=== PATIENT | female | born 1945 | race Caucasian/White ===

== ENCOUNTER 2019-01-15 09:20 | Inpatient (IN) | payer MEDICARE, OTHER ==
[2019-01-15] MEDS ORDERED: NS 0.9% 1000 ML** 1,000 ML IV ONE ×2 (09:31→11:47)
--- NOTE | 2019-01-15 09:31 | ED ---
Complex/Multi-Sys Presentation - HPI Summary HPI Summary: This patient is a 73 year old F presenting to [facility] accompanied by is a Nestor Brown called at about 0927 from triage with chief complaint of difficulty ambulating and left eye not tracking. Symptoms aggravated by nothing. Symptoms alleviated by nothing. Pt reports she woke up with current symptoms. Pt reports hypertension (denies blood thinners) and diabetes but denies hypercholesteremia and stroke. Pt's reports pt has had a couple of TAAs. - History Of Current Complaint Chief Complaint: EDNeurologicalDeficit Hx Obtained From: Patient Onset/Duration: Lasting Hours, Still Present Aggravating Factor(s): nothing Alleviating Factor(s): nothing Associated Signs And Symptoms: Positive: Other - difficulty ambulating, eye not tracking - Allergies/Home Medications Allergies/Adverse Reactions: Allergies Allergy/AdvReac Type Severity Reaction Status Date / Time Penicillins Allergy Unknown Unknown Verified 01/15/19 12:31 Reaction Details PMH/Surg Hx/FS Hx/Imm Hx Endocrine/Hematology History: Reports: Hx Diabetes Denies: Hx Anemia Cardiovascular History: Reports: Hx Hypertension Denies: Hx Pacemaker/ICD GI History: Denies: Hx Jaundice History: Denies: Hx Renal Disease Sensory History: Denies: Hx Hearing Aid Psychiatric History: Denies: Hx Panic Disorder - Cancer History Cancer Type, Location and Year: HX BREAST CA,FX HX BREAST CA Hx Chemotherapy: Yes - BREAST Hx Radiation Therapy: Yes - BREAST - Surgical History Surgery Procedure, Year, and Place: tubal,right lumpectomy 1995,[place],T&A. CARPAL TUNNEL BILATERAL WRISTS Infectious Disease History: No Infectious Disease History: Denies: Traveled Outside the [place] in Last 30 Days - Family History Known Family History: Positive: Diabetes Negative: Hypertension - Social History Alcohol Use: Rare Hx Substance Use: No Substance Use Type: Reports: None Hx Tobacco Use: No Smoking Status (MU): Never Smoked Tobacco Review of Systems Negative: Fever Positive: Other - left eye not tracking Positive: Other - difficulty ambulating All Other Systems Reviewed And Are Negative: Yes Physical Exam - Summary Physical Exam Summary: VITAL SIGNS: Reviewed. GENERAL: Pt is an elderly female no acute distress unable to ambulate from the wheelchair to the bed very ataxic. Patient is not in any acute respiratory distress. HEAD AND FACE: No signs of trauma. No ecchymosis, hematomas or skull depressions. No sinus tenderness. EYES: left eye is deviated to the left side, no tracking to the right. EARS: Hearing grossly intact. Ear canals and tympanic membranes are within normal limits. MOUTH: Oropharynx within normal limits. NECK: Supple, trachea is midline, no adenopathy, no JVD, no carotid bruit, no c- spine tenderness, neck with full ROM. CHEST: Symmetric, no tenderness at palpation. LUNGS: Clear to auscultation bilaterally. No wheezing or crackles. CVS: Regular rate and rhythm, S1 and S2 present, no murmurs or gallops appreciated. ABDOMEN: Soft, non-tender. No signs of distention. No rebound, no guarding, and no masses palpated. Bowel sounds are normal. EXTREMITIES: FROM in all major joints, no edema, no cyanosis or clubbing. NEURO: Alert and oriented x 3. No acute neurological deficits. Speech is normal and follows commands. SKIN: Dry and warm. Triage Information Reviewed: Yes Vital Signs On Initial Exam: Initial Vitals Temp Pulse Resp BP Pulse Ox 97.6 F 92 16 203/115 94 01/15/19 09:23 01/15/19 09:23 01/15/19 09:23 01/15/19 09:23 01/15/19 09:23 Vital Signs Reviewed: Yes Procedures - Sedation Patient Received Moderate/Deep Sedation with Procedure: No Diagnostics - Vital Signs Vital Signs Temp Pulse Resp BP Pulse Ox 01/15/19 09:23 97.6 F 92 16 203/115 94 - Laboratory Result Diagrams: 01/16/19 06:27 01/16/19 06:26 Lab Statement: Any lab studies that have been ordered have been reviewed, and results considered in the medical decision making process. - Radiology Chest X-Ray Radiology Interpretation Completed By: Radiologist Summary of Radiographic Findings: Per radiologist,. No acute cardiopulmonary process by radiograph. ED physician has reviewed this imaging report. - CT Brain CT CT Interpretation Completed By: Radiologist Summary of CT Findings: Per radiologist,. 1. No acute intracranial abnormality by CT (MRI is more sensitive for acute infarct. especially in the posterior fossa). 2. Small old right cerebellar hemisphere infarcts. 3. Mild chronic small vessel ischemic disease is likely. These findings were discussed with Dr. Darci Vasques at 9:48 AM on January 15, 2019. ED physician has reviewed this imaging report. - EKG 0951 Cardiac Rate: NL - 97 BPM Summary of EKG Findings: EKG taken at 0951 reveals 97 BPM sinus rhythm, no ST elevation, acute wave in V1,V2,V3. No old EKG for comparison. Re-Evaluation - Re-Evaluation First Eval Re-Evaluation Time: 09:43 Comment: Physician discusses brain CT with patient and . Patient reports the last time she was at baseline/"fine" was last night. Complex Multi-Symp Course/Dx Assessment/Plan: This patient is a 73 year old F presenting to [facility] accompanied by and is a Nestor Brown called at about 0927 from triage with chief complaint of difficulty ambulating and left eye not tracking. Symptoms aggravated by nothing. Symptoms alleviated by nothing. Pt reports she woke up with current symptoms. Pt reports hypertension (denies blood thinners) and diabetes but denies hypercholesterolemia and stroke. Pt's reports pt has had a couple of TAAs. Blood work without any significant abnormality except anion gap 13, glucose of 265, lactic acid is 4.7. Head CT impression: No acute intracranial abnormality by CT. MRI is more sensitive for acute infarct especially in this posterior fossa. I discussed the case with Dr. Campos from [place] [facility] who did a tele-stroke conference. He recommends no TPA since the onset of symptoms are not normal. The last time she was seen normal intervals was last night. She agrees that the patient may have a CVA therefore he recommends aspirin 325 mg daily, and admission to the hospital services. I discuss my physical exam and test results with Dr. Mendez from the hospitalist services and she agrees to admit the patient to her services. The patient is hemodynamically stable alert and oriented x 3. - Diagnoses Provider Diagnoses: CVA (cerebral vascular accident) During the Visit The Following Alert/Code Occurred: Nestor Brown - called at 0927 - Physician Notifications Discussed Care Of Patient With: Dr. Awilda Mallory - [place] Time Discussed With Above Provider: 09:45 Instructed by Provider To: Other - 0937: [facility] will contact attending physician 0945: Dr. Mallory will conduct Neural consult and pt is not accountable for TPA due to last time reported being well was last night 0949:Dr. Hernández reports no acute infarct and old celebral infarct 1044: Dr. Mallory reports pt had a stroke during the night, is not a candidate for TPA due to onset of symptoms, and recommends MRI, aspirin, and admission to hospitalist. 1130: Dr. Mendez, hospitalist, accepts pt for admission. Discharge ED - Sign-Out/Discharge Documenting (check all that apply): Patient Departure - admit - Discharge Plan Condition: Stable Disposition: ADMITTED TO [facility] - Billing Disposition and Condition Condition: STABLE Disposition: Admitted to [facility] - Attestation Statements Document Initiated by Scribe: Yes Documenting Scribe: Yvette Grady Provider For Whom Scribe is Documenting (Include Credential): Dr. Darci Vasques MD Scribe Attestation: I, Yvette Grady, scribed for Dr. Darci Vasques MD on 01/16/19 at 1856. Scribe Documentation Reviewed: Yes Provider Attestation: The documentation as recorded by the jeanethibYvette skinner accurately reflects the service I personally performed and the decisions made by me, Dr. Darci Vasques MD Status of Scribe Document: Viewed NIH Scale - NIH Scale Level of Consciousness: Alert/Keenly Responsive Ask Patient the Month and His/Her Age: Both Correct Ask Pt to Open/Close Eyes and Nitriles Lab Technician/Release Non-Paretic Hand: Both Correctly Best Gaze (Only Horizontal Eye Movement): Partial Gaze Palsy Visual Field Testing: Partial Hemianopia Facial Paresis-Pt to Smile & Close Eyes or Grimace Symmetry: Normal/Symmetrical Motor Function - Right Arm: No Drift-Holds 10 Seconds Motor Function - Left Arm: No Drift-Holds 10 Seconds Motor Function - Right Leg: No Drift-Holds 10 Seconds Motor Function - Left Leg: No Drift-Holds 10 Seconds Limb Ataxia-Must be out of Proportion to Weakness Present: Present in One Limb Sensory (Use Pinprick to Test Arms/Legs/Trunk/Face): Normal Best Language (Describe Picture, Name Items): No Aphasia Dysarthria (Read Several Words): Normal Extinction and Inattention: No Abnormality Total Score: 3
[2019-01-15] MEDS ORDERED: Aspirin 81 mg CHEW TAB* 81 MG TAB.CHEW PO ONE (10:29)
[2019-01-15 10:48] LABS: ABS Eosinophils 0.1 10^3/ul (0-0.6); ABS Lymphocytes 1.7 10^3/ul (1.0-4.8); ABS Monocytes 0.4 10^3/ul (0-0.8); ABS Neutrophils 4.2 10^3/ul (1.5-7.7); Eosinophil % 1.8 %; Hematocrit 42 % (35-47); Hemoglobin 14.4 g/dL (12.0-16.0); Lymphocyte % 26.2 %; Mean Corpuscular HGB Conc 34 g/dL (31-36); Mean Corpuscular Hemoglobin 30 pg (27-31); Mean Corpuscular Volume 88 fL (80-97); Nucleated Red Blood Cells % 0.1; Platelet Count 253 10^3/uL (150-450); Red Blood Count 4.77 10^6 /uL (3.70-4.87); Red Cell Distribution Width 14 % (10-15); White Blood Count 6.5 10^3/uL (3.5-10.8)
[2019-01-15 10:57] LABS: Activated Partial Thrombo Time 30.1 seconds (26.0-38.0); INR 0.93 (0.82-1.09)
[2019-01-15 11:07] LABS: Albumin 4.6 g/dL (3.2-5.2); Albumin/Globulin Ratio 1.9 (1-3); BUN/Creatinine Ratio 21.3 (8-20); Calcium 9.1 mg/dL (8.6-10.3); EGFR African American 91.4 (>60); EGFR Non-African American 75.5 (>60); Globulin 2.4 g/dL (2-4); HDL Cholesterol 40.6 mg/dL; Potassium 3.8 mmol/L (3.5-5.0); Total Bilirubin 0.6 mg/dL (0.2-1.0); Troponin I 0.01 ng/mL (<0.03)
[2019-01-15] MEDS ORDERED: Dextrose 50% VIAL 50 ml IV PUSH PRN (11:48)
[2019-01-15] MEDS ORDERED: Acetaminophen TAB* 325 MG PO PRN (11:49)
[2019-01-15] MEDS ORDERED: Al Hydrox/Mg Hydrox/Simet LIQ* 30 ML UDC PO PRN (11:49)
[2019-01-15] MEDS ORDERED: Clopidogrel TAB* 75 MG PO ONE (13:01)
[2019-01-15] MEDS ORDERED: Iodixanol* (CONTRAST) 320 MG/ML 100 ML SDV IV ONE (13:06)
--- NOTE | 2019-01-15 15:02 | HP ---
CC: Dr. Aldana; Dr. Magaña, Dr. Vega * HISTORY AND PHYSICAL: DATE OF ADMISSION: 01/15/19 PRIMARY CARE PROVIDER: Dr. Aldana. NEUROLOGIST: Dr. Magaña. CHIEF COMPLAINT: Deviation of the left eye and dizziness. HISTORY OF PRESENT ILLNESS: Sharri Raymundo is a 73-year-old female who had history of old cerebellar CVA with mild ataxia, but she was able to ambulate at home without any major problems and without the use of a walker or a cane. She today woke up in this morning and she noted that she had diplopia. She also felt that her left eye was blurry. She tried to stand up and walk and she was unable to due to severe unsteadiness. She came into the ED to be evaluated. Due to the patient's symptoms that occurred when she woke up, she was not a tPA candidate. Neurology from [place] recommended for the patient to be admitted for further monitoring and treatment of her likely CVA. PAST MEDICAL HISTORY: 1. 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 Magaña. 2. Possible Parkinson's, currently not treated. The patient was afraid of medication side effects. 3. History of vitamin B12 deficiency, on vitamin B12 shots every 3 weeks. 4. Chronic fatigue syndrome. 5. Hypertension. 6. Glaucoma. 7. Diabetes type 2. 8. Tonsillectomy and adenoidectomy. 9. History of episodes of lightheadedness when standing up. MEDICATIONS AT HOME: 1. Metformin 1000 mg twice a day. 2. Travatan eye drops 1 drop both eyes at bedtime. 3. Januvia 100 mg daily. 4. Omeprazole 20 mg daily. 5. Lisinopril 30 mg daily. 6. Aspirin 81 mg daily. ALLERGIES: PENICILLIN. FAMILY HISTORY: Father secondary to brain tumor. Mother at the age of 95 of old age, had history of colon cancer. SOCIAL HISTORY: The patient denies any tobacco, alcohol, or drug use. She is retired, lives with her and her is her surrogate. REVIEW OF SYSTEMS: Please see history of present illness. The patient stated that she has chronically mildly dysarthric speech and that had been going on for over 40 years. She has chronic mild ataxia, but she is able to ambulate without any support at baseline. Her unsteady gait and her problems with diplopia developed upon awakening today. She denies any headaches. Her diplopia currently has resolved, but she still has blurry vision on the left. All the remaining 12 systems were reviewed with the patient and were otherwise negative. PHYSICAL EXAMINATION GENERAL: The patient is a very pleasant 73-year-old female who is in no acute distress. The patient is alert and oriented x3. VITAL SIGNS: Blood pressure of 148/73, heart rate of 84 and regular, respiratory rate 18, oxygen saturation 98% on room air, temperature of 97.8. HEENT: Head: Atraumatic, normocephalic. Eyes: Pupils are equal and reactive to light and accommodation. Note that the patient's left eye is deviated outward to the left. Oropharynx is clear. Mucosa moist. NECK: Supple. No JVD. No bruits bilaterally. RESPIRATORY: Clear to auscultation bilaterally. CARDIOVASCULAR: Regular rate and rhythm. No murmur. ABDOMEN: Soft, nontender. Bowel sounds are present in all 4 quadrants. EXTREMITIES: There is no edema. Pulses are +2 bilaterally. No clubbing or cyanosis. NEUROLOGIC EVALUATION: Speech clear, although the patient has some mild dysarthria noted which is chronic and baseline for the patient. She has a little bit of speech hesitancy, which is her usual manner of speaking as per her and her for the past 40 years. Cranial nerves II through XII grossly intact, apart from the noted left eye deviation. The left eye deviates to the left and the patient is unable to move her eye to the right on the left side. There is no ptosis noted bilaterally. Motor strength is 5/5 in bilateral upper and lower extremities. The patient has significant ataxia and with her eyes open, she cannot ambulate more than 1 step before trying to fall down. Sensation is grossly intact. PSYCHIATRIC EVALUATION: Pleasant and cooperative with evaluation, oriented x3. No evidence of anxiety or depression. DIAGNOSTIC STUDIES/LAB DATA: Laboratory Data: Sodium of 139, potassium 3.8, chloride 103, carbon dioxide 23, BUN 16, creatinine 0.75. Liver function tests unremarkable. Lactic acid of 4.7. Hemoglobin A1c of 7.5. LDL was 98. White blood cell count of 6.5, hemoglobin of 14.4, hematocrit of 42, and platelets of 253. CTA of the head is pending at the time of dictation. The patient's EKG showed sinus tachycardia with heart rate of 97 beats per minute with left anterior fascicular block, flattening of T waves in the inferior and lateral leads. There is no old EKG available for comparison. Brain CT, impression: "No acute intracranial abnormality on CT. Small old right cerebellar hemisphere infarct. Mild chronic small-vessel ischemic changes are likely." Chest x-ray, impression: "No acute cardiopulmonary process by radiograph." ASSESSMENT AND PLAN: 1. Diplopia, left eye deviation, and ataxia. Likely due to another posterior circulation cerebrovascular accident. I discussed the case with Dr. Vega. Dr. Vega recommended adding Plavix to the patient's aspirin, but continue the regular Plavix dose of 75 mg a day and no loading dose for the time being. CTA of the head and neck is going to be obtained as well as brain MRI and transthoracic echocardiogram with bubble study. The patient is going to be admitted to telemetry monitored bed with neuro checks. The patient likely suffered from another posterior circulation stroke. Due to the patient's fasting LDL being above 90, she is going to be started on Lipitor tonight. Physical Therapy and Occupational Therapy will see the patient in evaluation. Although the patient's dysarthria is mild and very chronic, I will ask nursing to evaluate with bedside swallow evaluation before proceeding with diabetic diet. 2. In regards to the patient's diabetes, the patient is on metformin and Januvia. Both of the oral agents are going to be held. The patient is going to be placed on insulin sliding scale. Her hemoglobin A1c was just noted at 7.5. 3. In regards to dyslipidemia, Lipitor started as mentioned above. 4. For the patient's hypertension, we will institute permissive hypertension and hold the patient's lisinopril. 5. For DVT prophylaxis, the patient is going to be placed on heparin subcutaneously. 6. The patient's code status is full. Her surrogate is her . TIME SPENT: Approximately 68 minutes were spent on the admission of this patient, more than half that time was spent [id number] with the patient during the interview and physical exam. [id number]/[facility] #: [id number] MTDD
[2019-01-15] MEDS: Heparin VIAL(*) 5000 UNITS/ML VIAL (FIVE THOUSAND) SUBCUT SCH ×2 (15:39→22:05)
[2019-01-15] MEDS: Atorvastatin* 40 MG TAB PO SCH (17:56)
[2019-01-15] MEDS: Insulin LISPRO* 1 UNITS UNIT SUBCUT SCH ×2 (17:56→22:04)
[2019-01-15] MEDS: Docusate CAP* 100 MG PO SCH (22:15)
[2019-01-15 22:31] LABS: Urine Appearance Cloudy; Urine Bilirubin Negative (Negative); Urine Blood 1+ (Negative); Urine Color Yellow; Urine Glucose Negative (Negative); Urine Ketones Negative (Negative); Urine Nitrite Positive (Negative); Urine Protein Negative (Negative); Urine Specific Gravity 1.019 (1.010-1.030); Urine Urobilinogen Negative (Negative)
[2019-01-15 22:38] LABS: Urine Bacteria Absent (Absent); Urine Red Blood Cell 1+(3-5/hpf) (Absent); Urine Squamous Epithelial Cell Present (Absent); Urine White Blood Cell 3+(>20/hpf) (Absent)
[2019-01-16] MEDS: Heparin VIAL(*) 5000 UNITS/ML VIAL (FIVE THOUSAND) SUBCUT SCH ×3 (05:52→21:00)
[2019-01-16 06:43] LABS: ABS Eosinophils 0.4 10^3/ul (0-0.6); ABS Lymphocytes 2.9 10^3/ul (1.0-4.8); ABS Monocytes 0.7 10^3/ul (0-0.8); ABS Neutrophils 3.2 10^3/ul (1.5-7.7); Eosinophil % 5.8 %; Hematocrit 37 % (35-47); Hemoglobin 12.8 g/dL (12.0-16.0); Lymphocyte % 39.8 %; Mean Corpuscular HGB Conc 35 g/dL (31-36); Mean Corpuscular Hemoglobin 31 pg (27-31); Mean Corpuscular Volume 88 fL (80-97); Mean Platelet Volume 7.8 fL (7.4-10.4); Platelet Count 225 10^3/uL (150-450); Red Blood Count 4.19 10^6 /uL (3.70-4.87); Red Cell Distribution Width 13 % (10-15); White Blood Count 7.3 10^3/uL (3.5-10.8)
[2019-01-16 06:58] LABS: BUN/Creatinine Ratio 16.4 (8-20); Calcium 8.2 mg/dL (8.6-10.3); EGFR Non-African American 95.9 (>60); Potassium 3.5 mmol/L (3.5-5.0)
[2019-01-16] MEDS: Insulin LISPRO* 1 UNITS UNIT SUBCUT SCH ×4 (09:48→20:57)
[2019-01-16] MEDS: Pantoprazole TAB * 40 MG TAB PO SCH (09:49)
[2019-01-16] MEDS: Aspirin EC TAB* 81 MG TAB.EC PO SCH (09:49)
[2019-01-16] MEDS: Docusate CAP* 100 MG PO SCH ×2 (09:49→20:58)
[2019-01-16] MEDS: Clopidogrel TAB* 75 MG PO SCH (09:49)
--- NOTE | 2019-01-16 09:55 | PN ---
Subjective Date of Service: 01/16/19 Interval History: Pt feels much better and almost back to baseline. Ambulated with PT with walker without difficulty. Vision problems with left eye resolved, no diplopia Objective Active Medications: Acetaminophen (Tylenol Tab*) 650 mg PO Q4H PRN PRN Reason: PAIN-MILD/TEMP >/= 100.4 Al Hydrox/Mg Hydrox/Simethicone (Maalox Plus*) 30 ml PO Q6H PRN PRN Reason: INDIGESTION Aspirin (Aspirin Ec Tab*) 81 mg PO DAILY [facility] Last Admin: 01/16/19 09:49 Dose: 81 mg Atorvastatin Calcium (Lipitor*) 40 mg PO 1700 [facility] Last Admin: 01/15/19 17:56 Dose: 40 mg Clopidogrel Bisulfate (Plavix Tab*) 75 mg PO DAILY [facility] Last Admin: 01/16/19 09:49 Dose: 75 mg Dextrose (Dextrose 50% Vial 50 Ml*) 25 ml IV PUSH .FOR FS < 60 - SS PRN PRN Reason: FS < 60 Docusate Sodium (Colace Cap*) 100 mg PO BID [facility] Last Admin: 01/16/19 09:49 Dose: 100 mg Heparin Sodium (Porcine) (Heparin Vial(*)) 5,000 units SUBCUT Q8HR [facility] Last Admin: 01/16/19 05:52 Dose: 5,000 units Ceftriaxone Sodium 1 gm/ (Sodium Chloride) 50 mls @ 100 mls/hr IVPB Q24H [facility] Insulin Human Lispro (Humalog*) 0 units SUBCUT ACHS [facility]; Protocol Last Admin: 01/16/19 09:48 Dose: 1 unit Pantoprazole Sodium (Protonix Tab*) 40 mg PO DAILY [facility] Last Admin: 01/16/19 09:49 Dose: 40 mg Vital Signs - 8 hr 01/16/19 01/16/19 03:44 08:00 Temperature 97.9 F Pulse Rate 71 Respiratory 16 18 Rate Blood Pressure 137/62 (mmHg) O2 Sat by Pulse 94 94 Oximetry Oxygen Devices in Use Now: None Appearance: 73 yo f in nAD, aAOx3 Eyes: No Scleral Icterus, PERRLA Ears/Nose/Mouth/Throat: NL Teeth, Lips, Gums, Mucous Membranes Moist Neck: NL Appearance and Movements; NL JVP, Trachea Midline Respiratory: Symmetrical Chest Expansion and Respiratory Effort, Clear to Auscultation Cardiovascular: NL Sounds; No Murmurs; No JVD, RRR Abdominal: NL Sounds; No Tenderness; No Distention Lymphatic: No Cervical Adenopathy Extremities: No Edema, No Clubbing, Cyanosis Skin: No Rash or Ulcers, No Nodules or Sclerosis Neurological: Alert and Oriented x 3, - - left eye unable to adduct, but much improved from left deviatin yestarday. ataxia and gait with slight impairment- much improved, no focal motor deficit, speech clear Result Diagrams: 01/16/19 06:27 01/16/19 06:26 Assess/Plan/Problems-Billing Assessment: 73 yo f with h/o unsteady gait at baseline due to old cerebellar CVA 's, HTN, DM2 presented with ataxia and left eye deviation/diplopia - Patient Problems (1) Left pontine CVA Comment: MRI shows pontine CVA CTA unremarkable Echo pending Cont ASA/Plavix Dr. Vega to see today cont PT/OT , could possibly go home tomorrow (2) Dyslipidemia Comment: Lipitor 40 mg started at admission (3) HTN (hypertension) Comment: lisinopril held, sBP in 150's, cont to monitor off meds (4) DM2 (diabetes mellitus, type 2) Comment: holding metformin cont ISS Hba1C 7.5 (5) Lactic acid increased Comment: at admission suspect mild dehydration and metformin use will repeat level today (6) Abnormal urinalysis Comment: poss UTI Will start Ceftriaxone Although pt asymptomatic, will tx if cx grow due to pt's presentation with unsteady gait and mild dehydration (7) DVT prophylaxis Comment: HSQ Status and Disposition: inpatient
[2019-01-16] MEDS ORDERED: NS 0.9% 1000 ML** 1,000 ML IV SCH (10:30)
[2019-01-16] MEDS: cefTRIAXone(*) 1 GM in NS 0.9% 50 ML* 50 ML IVPB SCH (11:00)
--- NOTE | 2019-01-16 13:18 | PN ---
NEUROLOGICAL FOLLOWUP NOTE: DATE OF VISIT: 01/15/19 PATIENT OF: Dr. Aldana; Dr. Mgaaña; Dr. Mendez. HISTORY: This is a 73-year-old woman who has had a history of old cerebellar stroke with mild ataxia, but was able to ambulate without cane or walker as her residual. Yesterday morning, she woke up and had double vision with visual blurring and was unable to walk and had unsteadiness geared to the left. Since this was a wake up stroke, the telestroke consult felt that she was not a TPA candidate and recommended admission with MRI and CTA. She has a history of cerebellar CVA diagnosed in 2017 and is followed by Dr. Magaña, history of B12 deficiency and is on B12 shots every 2 weeks, chronic fatigue syndrome, hypertension, glaucoma, diabetes type 2, tonsillectomy, adenoidectomy, lightheadedness when standing up. MEDICATIONS: Medicines at home include: 1. Metformin 1000 mg twice a day. 2. Januvia 100 mg daily. 3. Omeprazole 20 mg daily. 3. Lisinopril 30 mg daily. 4. Aspirin 81 mg daily. ALLERGIES: She is allergic to PENICILLIN. FAMILY HISTORY: Father of a brain tumor. Her mother at 95 of old age with a past history of colon cancer. SOCIAL HISTORY: She does not smoke, drink, or use drugs. She lives at home. She had chronic mild dysarthria going on for at least 40 years time. She has no headaches, but has had some chronic neck pain. She feels like she is doing better today and she is not having blurry vision. She has been up and able to walk with her walker throughout the halls under the supervision of physical therapy. PHYSICAL EXAMINATION: Temperature 97.6, pulse 67, respirations 18, blood pressure 151/76. She is alert and oriented with normal speech and comprehension. Cranial nerves II through XII show a bilateral shai worse to the right than the left. She had mild incoordination in the rapid alternating hand movements and finger-to- nose bilaterally. Strength was 5/5. Sensation intact to light touch. Reflexes were 2 and equal with downgoing toes. Trace to 1 ankle jerks. She had intact sensation to light touch. Strength is 5/5. Chest: Clear. Cardiovascular: Regular rate and rhythm. Abdomen: Soft with positive bowel sounds. DIAGNOSTIC STUDIES/LAB DATA: Her MRI scan was reviewed and it shows diffuse white matter disease, old right cerebellar infarct, and acute left delia-abi infarct. Her CTA did not show any large vessel occlusion or dissection or aneurysm. There was some intracranial atherosclerotic disease with some mild atherosclerotic disease along the arch of the aorta as well. There were thyroid nodules and severe C6-7 degenerative disk disease with some moderate spinal canal stenosis. Labs include normal CBC, INR, PTT. BMP today was normal. Hemoglobin A1c was 7.5. LDL was 98. IMPRESSION AND PLAN: She has been started on Lipitor 40 mg daily and is on aspirin and Plavix for her atherosclerotic disease and she should be maintained on that for a month and go to just aspirin 325 on a daily basis. Her new symptoms are secondary to brainstem stroke and her cerebrovascular disease in terms of ischemia has been primarily limited to her posterior circulation. She does not want much intervention in terms of many more tests. I defer to her and Dr. Magaña how extensive long-term cardiac monitoring she should have if any. She says that sometime in the past she has had some cardiac monitoring. Other than the transthoracic echo which should be done with bubble study, there is no further testing that needs to be done. She can, if she does well, perhaps to go home tomorrow with followup with Dr. Magaña. If she stays and needs further neurological attention, Dr. Roberto will be beginning tomorrow. Thank you for sharing her case. [id number]/[facility] #: [id number] BOB
--- NOTE | 2019-01-16 16:35 | ECHO ---
*[facility]* [place] [address] Fax #: [phone] Transthoracic Echocardiogram Patient: Sharri Raymundo : 1945 Study Date: 01/16/2019 Age: 73 Gender: F HR: 79 bpm Height: 63 in /160 cm BSA: 1.78 m^2 Weight: 164.7 lb /74.8 kg BMI: 29.2 kg/m^2 *Organ Installer: * Melina Silva RDCS RN *Referring Physician: * Joyce Mendez *Reading Physician: * Hebert Whitlock MD Indications: CVA. History: Cerebrovascular accident. Risk factors: Hypertension. Diabetes mellitus. Conclusions Summary: - Left ventricle: Systolic function is normal. The estimated ejection fraction is 55-60%. Wall motion is normal; there are no regional wall motion abnormalities. - Right ventricle: Systolic function is normal. - Atrial septum: A patent foramen ovale di unlikely. There are a few bubbles seen in the left ventricle on release of Valsalva lilkey due to intrapulmonary shunting - Mitral valve: There is trace regurgitation. - Aortic valve: There is trace to mild regurgitation. - Tricuspid valve: There is trace regurgitation. - Study data: No prior study is available for comparison. Study data: Transthoracic echocardiogram. Procedure: Transthoracic echocardiography was performed. Image quality was fair. The study was technically limited due to body habitus. Intravenous agitated saline was administered. A bubble study was performed. Complete 2D, spectral Doppler, and color flow Doppler. Location: Bedside. Patient status: Inpatient. Patient room number: 433. No prior study is available for comparison. Rhythm: Normal sinus rhythm. Findings Left ventricle: The cavity size is normal. Wall thickness is mildly increased. Systolic function is normal. The estimated ejection fraction is 55-60%. Wall motion is normal; there are no regional wall motion abnormalities. There is no consistent Doppler evidence of clinically significant diastolic dysfunction. Right ventricle: The cavity size is normal. Systolic function is normal. Left atrium: The atrium is normal in size. Right atrium: The atrium is normal in size. Atrial septum: A patent foramen ovale di unlikely. Bubble study on Images 98 and 99. There are a few bubbles seen in the left ventricle on release of Valsalva lilkey due to intrapulmonary shunting Mitral valve: The leaflets are mildly thickened. There is no evidence of stenosis. There is trace regurgitation. Aortic valve: The valve is trileaflet. The leaflets are mildly thickened. There is no evidence of stenosis. There is trace to mild regurgitation. Tricuspid valve: The valve is structurally normal. There is no evidence of stenosis. There is trace regurgitation. Pulmonic valve: The valve is structurally normal. There is no evidence of stenosis. There is trace regurgitation. Aorta: Aortic root: The aortic root is not dilated. Ascending aorta: The ascending aorta is not dilated. Aortic arch: The aortic arch is not dilated. Pericardium: There is no pericardial effusion. Pulmonary arteries: The main pulmonary artery is normal-sized. Systolic pressure can not be accurately estimated. Systemic veins: Inferior vena cava: Not visualized. Measurements Left ventricle Value Ref Aortic valve Value Ref SARAH, LAX 4.2 cm 3.8 - 5.2 Marcelo diam, ED 2.1 cm ---- ESD, LAX 2.8 cm 2.2 - 3.5 Peak v, S 1.35 m/sec ---- FS, LAX 34 % 27 - 45 VTI, S 30.2 cm ---- PW, ED (H) 1.2 cm 0.6 - 0.9 Mean grad, S 5.0 mm Hg ---- IVS/PW, ED 0.99 Peak grad, S 7.0 mm Hg ---- E', lat marcelo, TDI (L) 8.2 cm/sec >=10.0 LVOT/AV, VTI ratio 0.61 --- - E/e', lat marcelo, 9 TDI Mitral valve Value Ref E', med marcelo, TDI (L) 5.1 cm/sec >=7.0 Peak E 0.75 m/sec --- - E/e', med marcelo, 15 Peak A 0.96 m/sec ---- TDI Decel time 257 ms ---- E', avg, TDI 6.7 cm/sec Peak grad, D 2.2 mm Hg ---- E/e', avg, TDI 11 <=14 Peak E/A ratio 0.8 --- - LVOT Value Ref Pulmonic valve Value Ref Peak linus, S 0.97 m/sec Peak v, S 0.77 m/sec ---- VTI, S 18.5 cm Peak grad, S 2.0 mm Hg ---- Mean grad, S 2 mm Hg Aortic root Value Ref Ventricular septum Value Ref Root diam 3.5 cm <4.0 IVS, ED (H) 1.2 cm 0.6 - 0.9 Ascending aorta Value Ref Right ventricle Value Ref AAo AP diam, S 3.3 cm ---- SARAH, LAX 2.6 cm SARAH minor ax, 3.3 cm 1.9 - 3.5 Aortic arch Value Ref A4C mid Arch diam 2.8 cm ---- Left atrium Value Ref Decending aorta Value Ref AP dim, ES 3.60 cm 2.70 - Jesse peak linus 0.56 m/sec ---- 3.80 ML dim, A4C 3.2 cm SI dim, A4C 5.0 cm Vol/bsa, ES, 1-p 20 ml/m^2 11 - 40 A4C Vol/bsa, ES, A/L 31 ml/m^2 16 - 34 Right atrium Value Ref ML dim, ES, A4C (L) 2.4 cm 2.6 - 4.4 SI dim, ES, A4C 4.1 cm 3.4 - 5.3 Legend: (L) and (H) teagan values outside specified reference range. Prepared and electronically signed by Hebert Whitlock MD 01/16/2019 16:35
[2019-01-16] MEDS: Atorvastatin* 40 MG TAB PO SCH (18:38)
[2019-01-17] MEDS: Heparin VIAL(*) 5000 UNITS/ML VIAL (FIVE THOUSAND) SUBCUT SCH (05:13)
[2019-01-17 07:34] VITALS: BP 151/79
[2019-01-17] MEDS: Insulin LISPRO* 1 UNITS UNIT SUBCUT SCH (09:01)
[2019-01-17] MEDS: Docusate CAP* 100 MG PO SCH (09:02)
[2019-01-17] MEDS: Pantoprazole TAB * 40 MG TAB PO SCH (09:02)
[2019-01-17] MEDS: Clopidogrel TAB* 75 MG PO SCH (09:02)
[2019-01-17] MEDS: Aspirin EC TAB* 81 MG TAB.EC PO SCH (09:02)
[2019-01-17] MEDS: cefTRIAXone(*) 1 GM in NS 0.9% 50 ML* 50 ML IVPB SCH (11:28)
--- NOTE | 2019-01-17 12:20 | DS ---
CC: Dr. Aldana; Dr. Vega; Dr. Magaña.* DISCHARGE SUMMARY: DATE OF ADMISSION: 01/15/19 DATE OF DISCHARGE: 01/17/19 PRIMARY CARE PROVIDER: Dr. Aldana. CONDITION ON DISCHARGE: Stable. DISPOSITION AT DISCHARGE: Home. DISCHARGE DIAGNOSES: An episode of ataxia and left eye deviation due to acute left pontine ischemic cerebrovascular accident. SECONDARY DIAGNOSES: 1. History of chronic mild unsteady gait due to cerebrovascular accidents in the past. 2. History of possible Parkinson's, currently not treated. 3. Vitamin B12 deficiency. 4. Chronic fatigue syndrome. 5. Hypertension. 6. Glaucoma. 7. Diabetes type 2. 8. Tonsillectomy and adenoidectomy. MEDICATIONS ON DISCHARGE: Include: 1. Aspirin 81 mg daily for 1 month. 2. Plavix 75 mg daily for 1 month, then switch to aspirin 325 mg daily continuously after the 1 month of as soon as Plavix as before. The remaining medications include: 1. Lisinopril 20 daily. 2. Metformin 1000 mg daily. 3. Januvia 100 mg daily. 4. Travoprost ophthalmic solution 1 drop both eyes daily. 5. Lipitor 40 mg daily. DIAGNOSTIC STUDIES/LAB DATA: Laboratory data performed during the hospital stay included on 01/16/19, white blood cell count of 7.3, hemoglobin of 12.8, hematocrit of 37, platelets of 225. Sodium 142, potassium of 3.5, chloride 110 , carbon dioxide 23, BUN 10, creatinine 0.61. The patient's hemoglobin A1c was 7.5. Please also note the patient had asymptomatic elevation of lactic acid up to 4.7 at admission, thought to be related to use of metformin and mild dehydration. The patient's urinalysis showed nitrite positive, wbc's +3, esterase +2, squamous epithelial cells +2 and bacteria absent. MRI of the brain obtained on 01/15/19, impression: "Punctate acute infarct near the delia-abi in close proximity to the facial colliculus." Old right cerebral infarct. Moderate chronic small vessel disease is likely. Mild cerebral volume loss. CT angiogram of the chest and neck obtained on 01/15/19. Impression: "No acute occlusive disease, severe stenosis or aneurysm of the head. Old right cerebral hemisphere infarct. Intracranial atherosclerotic disease. No acute occlusive disease or severe stenosis of the neck. Mild atherosclerotic disease along the arch of aorta. There are bilateral thyroid nodules up to 1.7 cm on the left, these could be better characterized by ultrasound. Severe C6-C7 degenerative disc disease resulted in at least moderate spinal canal stenosis." CONSULTATION DURING THE HOSPITAL STAY: Dr. Vega from Neurology. HOSPITALIZATION COURSE: Sharri Raymundo is a 73-year-old female with history of old cerebral strokes with mildly ataxic gait, but ambulated without any need of assistive device within the hospital complaining of sudden onset of ataxia and left eye blurriness, and diplopia. When she came into the ED, her left eye was deviated to the left and she had severe ataxia. She was admitted with a working diagnosis of CVA. In fact, her MRI of the brain did show acute left pontine CVA. She was increased from her aspirin only to aspirin and Plavix. Dr. Vega saw her in consultation. CT angiogram did not show any occlusive disease that needed intervention. Her transthoracic echocardiogram showed EF of 55% to 60% with unlikely PFO. By the time of the day of discharge the patient was evaluated with PT, she was back to her baseline. She basically could ambulate without support, but she was recommended to use a walker for the next several days after she recovers fully. The blurry vision in the left eye appeared resolved and her left eye is no longer deviated. She is going to be discharged home. Recommendation to followup with her primary care provider in 4 to [address] Magaña, whom she followed up in the past, in approximately a month. She had an LDL of 98 at admission and that was fasting result. Due to that she was placed on Lipitor 40 mg daily. Please also note that the patient's lactic acid was elevated at admission 4.7. She was entirely asymptomatic and did not have any symptoms of infection. Due to her very slightly abnormal urinalysis, ceftriaxone was instituted during the hospital stay, but that is going to be stopped at discharge. The microbiology studies did not show any significant findings by the time of discharge. PHYSICAL EXAM: At the time of discharge, blood pressure of 151/79, heart rate of 70 and regular, respiratory rate 16, oxygen saturation 95% on room air, temperature 98.3. General: The patient is a very pleasant 73-year-old female, who is not in acute distress. Alert, awake, and oriented x3. HEENT: Head: Atraumatic, normocephalic. Eyes: Pupils are equal, reactive to light and accommodation. Oropharynx is clear. Mucosa moist. Neck: Supple. No JVD. No bruits bilaterally. Cardiovascular: Regular rate and rhythm. No murmur. Respiratory: Clear to auscultation. Abdomen: Soft, nontender. Bowel sounds are present in all 4 quadrants. Extremities: There is no edema. Pulses are + 2 bilaterally. No clubbing. No cyanosis. On neuro evaluation, cranial nerves II through XII grossly intact. Motor strength is 5/5 bilaterally. Gait is mildly unsteady, slightly wide, but she is able to ambulate independently. Please note that this is a short summary of the patient's hospitalization. Please refer to further medical records for details. TIME SPENT: Approximately 40 minutes was spent on the patient's discharge. [id number]/CPS #: [id number] MTDD
--- NOTE | 2019-01-17 12:26 | PN ---
Subjective Date of Service: 01/17/19 Length of Stay: 2 Days Neurology is following for the evaluation of stroke. Interval History: The patient's double vision improved. She denied any headache or focal weakness. She is walking with a walker. She denied any swallowing difficulty. The patient has chronic neck pain. She denied any recent impairment in her bowel or bladder functions. NIHSS: 1 due to limited horizontal extraocular movement abnormality. Imaging studies: CT head without contrast 01/15/2019: no acute intracranial abnormality by CT. Small old right cerebellar hemisphere infarcts. CTA head without contrast 01/15/2019: no acute occlusive disease. Severe C6-7 degenerative disease results in at least moderate spinal canal stenosis. Bilateral thyroid nodules. MRI brain without contrast 01/15/2019: punctate acute infarct near the left hemipons. - EF: 55-60%. A PFO is unlikely. Review of Systems: Denied CP, SOB, or palpitations. Objective Vital Signs 01/16/19 01/16/19 01/16/19 14:56 19:09 19:25 Temperature 97.9 F 98.0 F Pulse Rate 72 79 Respiratory 20 18 16 Rate Blood Pressure 151/75 146/66 (mmHg) O2 Sat by Pulse 94 94 Oximetry 01/16/19 01/16/19 01/17/19 20:39 23:00 04:11 Temperature 97.7 F 98.4 F Pulse Rate 67 73 Respiratory 16 16 Rate Blood Pressure 157/76 132/66 (mmHg) O2 Sat by Pulse 95 97 93 Oximetry 01/17/19 01/17/19 07:26 07:34 Temperature 98 F Pulse Rate 70 Respiratory 16 16 Rate Blood Pressure 151/79 (mmHg) O2 Sat by Pulse 95 95 Oximetry Intake and Output Last 24 Hours 01/15/19 01/16/19 01/17/19 01/18/19 06:59 06:59 06:59 06:59 Intake Total 9 2005 480 Output Total 400 425 Balance 1958 1581 480 Weight 165 lb 14.4 oz Intake: IV Fluids 1998 1126 NS (0.9%) 999 1126 IVPB 50 ABX - CEFTRIAXONE 50 Oral 360 830 480 Output: Urine 400 425 Other: Estimated Stool Amount Medium Oxygen Devices in Use Now: None Neurology Exam: General: Well nourished, well developed, and in no acute distress HEENT: Normocephelic/atraumatic, sclera anicteric, mucous membranes moist Neck: Supple Extremities: No clubbing, cyanosis, or edema Neurological Findings: Awake, alert, and oriented to person, place, and time. Speech: fluent without dysarthria, repetition intact Cranial Nerve: PERRL, left LONNIE with inability of the left eye to adduct fully and the contralateral eye abducts, however with nystagmus. No facial asymmetry. Motor: s/s throughout, proximal and distal extremities x4 tone/bulk normal Sensation: intact to LT/PP bilaterally upper and lower extremities Finger to nose, rapid alternating movements intact without tremor, no dysdiadochokinesia Gait: walker dependent, wide based gait. Result Diagrams: 01/16/19 06:27 01/16/19 06:26 Microbiology and Other Data: Microbiology 01/15/19 22:18 Urine Culture - Preliminary Urine Escherichia Coli Assessment/Plan Mrs. Raymundo is a 73-year-old right-handed female with a past medical history significant for chronic fatigue syndrome, hypertension, glaucoma, diabetes mellitus type II, and a remote history of left cerebellar stroke with mild baseline ataxia, who was taking aspirin regularly, who presented to [facility] on 01/15 due to double vision. She woke up with the symptoms. She has unsteadiness in her gait and was gearing towards the left side. She was not a candidate for IV tPA due to being a wake up stroke. 1. Acute left LONNIE due to a brainstem stroke. NIHSS 1. She was not a candidate for IV tPA (wake up stroke) or mechanical thrombectomy (no LVO) - Etiology: small vessel lacunar stroke due to her risk factors that include hypertension, DMII, and prior posterior circulatory stroke. We cannot entirely exclude a small vessel emboli from proximal origin ([id number] or cardio embolic). Recommendations: - Agree with DAPT for 21 days, then discontinue Plavix and increase aspirin to 325 mg daily. - Atorvastatin 40 mg nightly - The patient has no new gait abnormality or fine motor movement. She has no evidence of dysphagia. Therefore, there is no need for PT/OT/SOCIAL SERVICE AGENCY DIRECTOR evaluation. - Stroke education completed - There is no indication for anticoagulation therapy 2. Bilateral thyroid nodules. Follow-up with your PCP 3. Cervical spondylosis with spinal stenosis. Follow-up with Dr. Magaña to assess for further cervical spine imaging or EMG/NCS. The patient has chronic neck pain. She denied any recent impairment in her bowel or bladder functions. Follow-up with neurology in 4-6 weeks.
== END 2019-01-17 12:06 | disposition home or self-care (01) | DRG 66 ==
LOC: ED 09:20 → MEDTELE 11:49
PROVIDERS: ADMIT Internal Medicine; ATTEND Internal Medicine
DX: I63.89 Other cerebral infarction (principal); E11.39 Type 2 diabetes mellitus with other diabetic ophthalmic complication; H42 Glaucoma in diseases classified elsewhere; I10 Essential (primary) hypertension; R29.703 NIHSS score 3; H51.22 Internuclear ophthalmoplegia, left eye; R53.82 Chronic fatigue, unspecified; H53.2 Diplopia; I44.4 Left anterior fascicular block; E78.5 Hyperlipidemia, unspecified; R47.1 Dysarthria and anarthria; E53.8 Deficiency of other specified B group vitamins; G89.29 Other chronic pain; M54.2 Cervicalgia; E04.2 Nontoxic multinodular goiter; M48.02 Spinal stenosis, cervical region; M47.812 Spondylosis without myelopathy or radiculopathy, cervical region; R74.0 Nonspecific elevation of levels of transaminase and lactic acid dehydrogenase [LDH]; E86.0 Dehydration; G20 Parkinson's disease; Z88.0 Allergy status to penicillin; Z85.3 Personal history of malignant neoplasm of breast; I69.393 Ataxia following cerebral infarction; Z79.82 Long term (current) use of aspirin; Z79.84 Long term (current) use of oral hypoglycemic drugs; Z79.02 Long term (current) use of antithrombotics/antiplatelets; Z79.899 Other long term (current) drug therapy
CPT/HCPCS: 36415; 70450; 70496; 70498; 70551; 71045; 80048; 80053; 80061; 81003; 81015; 83036; 83605; 84484; 85025; 85610; 85730; 87077; 87086; 87186; 93005; 93306; 99285; A9270-GY; G8978-GP-CI; G8978-GP-CJ; G8979-GP-CI; G8980-GP-CI; J0696; J1644; Q9967